=== PATIENT | female | born 1960 | race Caucasian/White ===

== ENCOUNTER 2016-10-16 15:07 | Inpatient (IN) | payer BC ==
[2016-10-16] MEDS ORDERED: ACETAMINOPHEN 500 MG TAB PO PRN (17:15)
--- NOTE | 2016-10-16 17:16 | PDGENHP ---
History and Physical History and Physical: HISTORY AND PHYSICAL ADMISSION NOTE CC: Abdominal pain and distention HISTORY: This patient with known diffuse metastatic breast cancer has been having worsening abdominal distention and discomfort for approximately 2 and half months. She has been found to have some ascites developing. Because of the development of some ascites and failure of response of a known liver met to chemotherapy 2 months ago she had her chemotherapy changed to etoposide. A week ago as her symptoms were worsening she had a CT scan that showed evidence of a kidney stone. She went to the operating room with Dr. Archibald and a stent was placed but no stone was found so she most likely passed the stone. It is anticipated she will have the stent removed in 4 days. Today she saw Dr. Larios and still had worsening pain and bloating. A CT scan was done showing worsening ascites and she is sent to the hospital for further evaluation and for paracentesis. She has not had fevers, decreased appetite, shortness of breath, leg swelling or swelling anywhere else. She does have some constipation which is a bit worse although she is taking some pain medicine that may be contributing to that. ROS: She does still have back pain from her metastatic disease there. 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 some pain from that FAMILY MEDICAL HISTORY: Bladder cancer in her mother, heart disease in her father SOCIAL HISTORY: lives with her is here with her now No tobacco or alcohol or street drugs MEDICATIONS: These have been reconciled in the electronic record by our pharmacist, I have reviewed the list and ordered appropriate medications from the list PHYSICAL EXAMINATION: Vital Signs: Stable without fever Examination: General: alert, oriented, good mentation, relaxed Skin: warm, dry, good color, no rash, no jaundice or by bleeding or bruising seen HEENT: normal Neck: no mass or jvd Resps: relaxed Lungs: clear breath sounds Heart: regular, no murmur Abdomen: soft, quite distended, nontender, with bowel sounds present but with shifting dullness to percussion suggesting ascites Upper Extremities: normal Lower Extremities: no edema, warm No Bleeding or bruising Neurologic: normal speech/language, normal shuttle threader, no focal weakness IV site: looks normal LABORATORY DATA: Labs done today in Dr. Larios is clinic include a CBC with white count of 2.9 1000 with normal neutrophil count, mild macrocytic anemia, could platelets, bilirubin 3.8 with minimal transaminase elevation, but a moderate elevation of alkaline phosphatase reader needs to look at the outpatient laboratory admission number to see these data RADIOLOGY STUDIES: Also done at [facility] today as a CT scan of the abdomen. Dr. Larios reports to me that this does show worsening ascites but no other new findings. I am unable to see those images here but will check with our radiologist to see if they are able to get to those images ASSESSMENT: DIAGNOSES: # worsening ascites and abdominal pain #Known diffuse metastatic breast cancer with liver and spine mets on chemotherapy #Pain of peripheral neuropathy in the feet The mechanism of ascites is not certain. I suspect he probably has peritoneal studding and leak from that. She could also have potentially hepatic obstruction or lymphatic obstruction from tumor. Given her story as above is very unlikely that this is bleeding or infection. It would be useful to get diagnostic evaluation from her ascites fluid to see if that informs us in a way that we can try and reduce the production of fluid but I suspect it is mostly going to have to come down to chemotherapy. PLANS: -admission with inpatient status due to her significant symptoms and anticipate greater than 48 hour stay for management -Paracentesis -Laboratory studies on peritoneal fluid and examination of that try and determine the mechanism of fluid accumulation -Analgesics and titrate her pain medicines -she is scheduled for removal of ureteral stent 4 days from now with Dr. Archibald I have reviewed the patient's case in detail with Dr. Kassandra Larios I have reviewed the patient's past medical records as part of this assessment, including previous hospital stays including physicians notes radiologic reports , laboratory data.
[2016-10-16] MEDS ORDERED: ONDANSETRON DISINTEGRATING 4 MG TAB PO PRN (17:23)
[2016-10-16] MEDS ORDERED: ONDANSETRON 4 MG/2 ML VIAL IVP PRN (17:51)
[2016-10-16] MEDS ORDERED: ACETAMINOPHEN 325 MG TAB PO PRN (17:51)
[2016-10-16] MEDS ORDERED: ZOLPIDEM TARTRATE 5 MG TAB PO PRN (17:51)
[2016-10-16] MEDS: PREGABALIN 50 MG CAP PO SCH (20:28)
[2016-10-17 05:08] LABS: % IMMATURE GRANULYOCYTES 0.4 % (0.0-1.1); ABSOLUTE IMMATURE GRANULOCYTES 0.01 10^3/uL (0.00-0.10); ADD DIFF? NO; ADD MORPH? YES; ADD SCAN? NO; ATYPICAL LYMPHOCYTE FLAG 0 (0-99); FRAGMENT RBC FLAG 10 (0-99); HEMATOCRIT 26.9 % (38.0-47.0); HEMOGLOBIN 9.2 g/dL (12.6-16.3); LEFT SHIFT FLG 0 (0-99); LIPEMIA HEMOLYSIS FLAG 90 (0-99); MEAN CELL HEMOGLOBIN 34.7 pg (27.9-34.1); MEAN CELL HEMOGLOBIN CONCENTR. 34.2 g/dL (32.4-36.7); MEAN CELL VOLUME 101.5 fL (81.5-99.8); MEAN PLATELET VOLUME 11.6 fL (8.7-11.7); PLATELET CLUMPS FLAG 0 (0-99); PLATELET COUNT 155 10^3/uL (150-400); RED BLOOD CELL COUNT 2.65 10^6/uL (4.18-5.33)
[2016-10-17 05:30] LABS: ALANINE AMINOTRANSFERASE 33 IU/L (9-52); ALBUMIN 2.6 g/dL (3.5-5.0); ALKALINE PHOSPHATASE 450 IU/L (38-126); ANION GAP 7 mEq/L (8-16); ASPARTATE AMINOTRANSFERASE 85 IU/L (14-46); BILIRUBIN,TOTAL 3.2 mg/dL (0.1-1.4); CALCIUM 8.6 mg/dL (8.5-10.4); CARBON DIOXIDE 26 mEq/l (22-31); CHLORIDE 107 mEq/L (97-110); CREATININE 0.5 mg/dL (0.6-1.0); GLOMERULAR FILTRATION RATE > 60; GLUCOSE 91 mg/dL (70-100); POTASSIUM 4.4 mEq/L (3.5-5.2); SODIUM 140 mEq/L (134-144); TOTAL PROTEIN 5.1 g/dL (6.3-8.2)
[2016-10-17 05:36] LABS: BILIRUBIN-CONJUGATED 1.8 mg/dL (0.0-0.5); BILIRUBIN-UNCONJUGATED 1.4 mg/dL (0.0-1.1)
[2016-10-17 06:00] LABS: MACROCYTES 1+
[2016-10-17 06:01] LABS: PLATELET ESTIMATE ADEQUATE (ADEQ)
[2016-10-17] MEDS: PREGABALIN 50 MG CAP PO SCH (08:39)
[2016-10-17] MEDS ORDERED: LIDOCAINE 1% 30 ML SDV ONE (08:50)
[2016-10-17] MEDS ORDERED: NA BICARBONATE 50 MEQ/50 ML VIAL ONE (08:50)
[2016-10-17] MEDS ORDERED: ENOXAPARIN 40 MG/0.4 ML SYR SC SCH (09:00)
[2016-10-17] MEDS ORDERED: CYANO/VITAMIN B12 1000 MCG TAB PO SCH (09:00)
[2016-10-17] MEDS ORDERED: CHOLECALCIFEROL VIT D3 2,000 UNITS TAB/CAP PO SCH (09:00)
[2016-10-17] MEDS ORDERED: CALCIUM CARBONATE 500 MG TAB PO SCH (09:00)
[2016-10-17] MEDS ORDERED: MULTIVITAMINS 1 EACH TAB PO SCH (09:00)
[2016-10-17 12:54] VITALS: BP 115/73; PULSE 80; RESP 16; TEMP 97.7; O2SAT 90
--- NOTE | 2016-10-17 14:44 | GCON ---
[f rep st] CONSULTATION DATE OF CONSULTATION: 10/17/2016 HISTORY OF PRESENT ILLNESS: The patient is a pleasant 55-year-old female, who was diagnosed initiall y with stage IIA breast carcinoma in October 2005. She has unfortunately since developed metastatic disease. She has had multiple lines of systemic chemotherapy in the past. She was originally diagn osed with HER-2/kerry positive disease, but at the time of recurrence had HER-2/kerry negative disease. Most recently, she has been on oral palliative chemotherapy with etoposide at a fairly low dose. She has had difficulty tolerating low-dose etoposide due to chemotherapy-induced cytopenias. Her tumor markers have been rising. She developed worsening ascites over an approximate 2-week period. She was seen by Dr. Larios in the [facility] clinic yesterday. CT scan was performed, which evidently revealed some evidence of disease progression and confirmed worsened ascites. The patient was admitted to the hospital for therapeutic and diagnostic paracentesis. This was originally scheduled to be done last night, but unfortunately was not done for unclear reasons. She is scheduled to have it done later this afternoon. She continues to have abdominal discomfort and distention. This is relieved with IV morphine. She d enies nauseam, vomiting or diarrhea. She denies fevers or chills. She denies flank pain. Her medical history is also notable for recent placement of a ureteral stent for a kidney stone which she evidently has passed. PAST MEDICAL HISTORY: 1. Metastatic breast carcinoma (metastasis to bone and liver). 2. History of gallstone pancreatitis, December 2015. 3. Chemotherapy-induced peripheral neuropathy. 4. Kidney stone with recent ureteral stent placement. PHYSICAL EXAM: GENERAL: Gayathri is resting comfortably in bed. She is in no acute distress curren tly. VITAL SIGNS: Pupils equal. Sclerae nonicteric. ABDOMEN: Reveals moderate ascites with posit grisel fluid wave. No guarding, no rebound, no tenderness, no palpable abdominal mass. Bowel sounds no rmoactive. NEURO: The patient is alert, oriented, and appropriate. LABORATORY STUDIES: Sodium 140, potassium 4.4, chloride 107, bicarb 26, BUN 12, creatinine 0.5, tota l bilirubin 3.2, AST 85, ALT 33, alkaline phosphatase 450, albumin 2.6. IMPRESSION: 1. Metastatic breast carcinoma (patient currently on oral etoposide palliatively). 2. Malignant ascites. 3. Recent ureteral stent placement for kidney stone. 4. Transaminitis likely secondary to hepatic involvement from #1. 5. Pancytopenia secondary to prior chemotherapy treatment. The patient is a pleasant 55-year-old female, who was admitted with worsening ascites likely related to her primary metastatic breast cancer. She is scheduled to undergo a palliative paracentesis later today. I think she can be discharged following the paracentesis if her symptoms are improved. The patient indicates she would feel more comfortable spending tonight in the hospital which I think is c ertainly reasonable in light of her current need for IV narcotics. Certainly if this resolves after paracentesis, she could potentially be discharged this evening. Her chemotherapy options are somewhat limited at the current time. Dr. Larios is attempting to graduall y increase her dose of etoposide. She will follow up with Dr. Larios in the office once discharged. Dr Vidya Larios is aware of her admission. She does not require any transfusion support at the current time. Our service will continue to follow her during her hospital stay. TIME SPENT: Total time for today's visit was approximately 45 minutes. /[id number]/MODL
--- NOTE | 2016-10-17 17:36 | US ---
Ultrasound-Guided Paracentesis INDICATION: Breast cancer. Distended with abdominal pain. Informed Consent: Obtained from the patient. Risks and benefits were discussed. Crosscutting Measure: Patient's current list of medications including all known prescriptions, over- the-counters, herbals, and vitamin/mineral/dietary supplements are reviewed. Medications' name, dosa ge, frequency, and route of administration are confirmed. The patient is a non-smoker. Prophylactic Antibiotic: Cefazolin was not ordered and administered for antimicrobial prophylaxis be cause it was not medically necessary. VTE Prophylaxis: There is not an order for VTE prophylaxis to be given within 24 hours of the proced ure end time. VTE prophylaxis was not given because it was not medically necessary. Technique: Patient is placed in supine position. A "timeout" procedure was performed to identify th e correct patient and the correct procedure. 1% Xylocaine was used for local anesthetic. All eleme nts of maximal sterile barrier technique including cap, mask, sterile gown, sterile gloves, large katina rile sheet, hand hygiene, and 2% chlorhexidine for cutaneous antisepsis followed. Ultrasound evaluation of potential access site was performed. A permanent recording was created for t he patient's record. When ultrasound is used, sterile gel and probe covers are used. Right lower quadrant approach is chosen. Safe-T needle is inserted into perihepatic ascites under ult rasound guidance. Subsequently, 2800 mL of dark brown ascites was aspirated and sent for requested la bs. The patient tolerated the procedure well. There was no residual fluid postparacentesis. IMPRESSION: Ultrasound-guided paracentesis via right lower quadrant approach. 2800 mL removed and sen t for requested labs.
[2016-10-17 17:38] LABS: GLUCOSE, PERITONEAL FLUID 99 mg/dL (55-113); LD, PERITONEAL FLUID 236 IU/L
--- NOTE | 2016-10-17 22:44 | PDDCSUM ---
Discharge Summary Discharge Summary: Pt felt well after paracentesis. Was able to ambulate. DC'd to home w/ instructions to [facility] w/ Dr. Larios this week for results of procedure.
== END 2016-10-17 17:29 | disposition home or self-care (01) | DRG 597 ==
LOC: F1N 15:50 → OBSVTOIN 17:51
PROVIDERS: ADMIT Internal Medicine; ATTEND Internal Medicine
PROC: 0W9G3ZZ Drainage of Peritoneal Cavity, Percutaneous Approach (ICD-10-PCS; principal; 2016-10-17)
DX: C50.819 Malignant neoplasm of overlapping sites of unspecified female breast (principal); D61.810 Antineoplastic chemotherapy induced pancytopenia; R18.0 Malignant ascites; C78.7 Secondary malignant neoplasm of liver and intrahepatic bile duct; C79.51 Secondary malignant neoplasm of bone; G62.0 Drug-induced polyneuropathy; T45.1X5A Adverse effect of antineoplastic and immunosuppressive drugs, initial encounter; R74.0 Nonspecific elevation of levels of transaminase and lactic acid dehydrogenase [LDH]; Z80.52 Family history of malignant neoplasm of bladder; Z82.49 Family history of ischemic heart disease and other diseases of the circulatory system

== ENCOUNTER → 2016-10-27 | Outpatient (CLI) | payer BC ==
[~2016-10-27] MED LIST: LIDOCAINE 1% 30 ML SDV ONE; NA BICARBONATE 50 MEQ/50 ML VIAL ONE
--- NOTE | 2016-10-27 16:14 | US ---
Ultrasound-Guided Paracentesis History: Ascites. History of breast cancer. Crosscutting Measure #226: Current tobacco user: no. Informed consent was obtained. The possibility of infection, bleeding, and bowel injury were discusse d. Technique: A dominant pocket of ascitic fluid was localized in the right lower quadrant. The skin wa s then prepped and draped in sterile fashion. Local and deep anesthesia was applied with 1% lidocaine . A small skin nurys was applied through which the paracentesis catheter was inserted into the ascitic fluid. 4000 mL of fluid were removed using vacuum technique. The fluid was serous. At the end of the procedure, the catheter was removed, a sterile bandage applied, and the patient discharged from the department. Impression: Successful 4000 mL paracentesis with ultrasound guidance.
== END ==
LOC: FIMAGING 12:17
PROVIDERS: ATTEND Internal Medicine Hematology & Oncology
PROC: 0W9F3ZZ Drainage of Abdominal Wall, Percutaneous Approach (ICD-10-PCS; principal; 2016-10-27)
DX: R18.8 Other ascites (principal); C50.919 Malignant neoplasm of unspecified site of unspecified female breast

== ENCOUNTER → 2016-11-25 | Outpatient (CLI) | payer BC ==
[~2016-11-25] MED LIST changes: +ALBUMIN 25% 50 ML SOLN IV ONE
== END ==
LOC: FIMAGING 13:56
PROVIDERS: ATTEND Internal Medicine Hematology & Oncology
PROC: 0W9F3ZZ Drainage of Abdominal Wall, Percutaneous Approach (ICD-10-PCS; principal; 2016-11-25)
DX: R18.8 Other ascites (principal); C50.919 Malignant neoplasm of unspecified site of unspecified female breast
CPT/HCPCS: P9047

== ENCOUNTER → 2016-12-18 | Outpatient (CLI) | payer BC ==
[~2016-12-18] MED LIST changes: +ALBUMIN 25% 100 ML SOLN IV ONE; -ALBUMIN 25% 50 ML SOLN IV ONE
== END ==
LOC: FIMAGING 13:17
PROVIDERS: ATTEND Nurse Practitioner
PROC: 0W9F3ZZ Drainage of Abdominal Wall, Percutaneous Approach (ICD-10-PCS; principal; 2016-12-18)
DX: R18.8 Other ascites (principal)
CPT/HCPCS: P9047